=== PATIENT | female | born 1980 ===

== ENCOUNTER 2024-08-17 09:48 | Outpatient (CLI) | payer OTHER, SELFPAY | END 2024-08-17 09:49 | disposition home or self-care (01) | PROVIDERS: Visit Provider Physician Assistant | DX: R00.1 Bradycardia, unspecified (principal) | CPT/HCPCS: 85379 ==

== ENCOUNTER 2024-08-17 11:17 | Emergency (ER) | payer OTHER, SELFPAY ==
--- OUTSIDE RECORDS SUMMARY | 2024-08-17 11:19 | XMS_ITS | Clinical Summary ---
Author Organization [facility] Address [address] [place] [address] Care Team Providers Care Technical Staff Assistant Name Role Phone Doctor, None MD Unavailable Unavailable Skyla Camara MD Primary Care Provider [phone] [facility] Unavailable Allergies Active Allergy Reactions Criticality Noted Date Comments No Clinical Screening - See Comments 01/10/2001 PN: LW CM1: CONTRAST- nka Reaction : Medications fish oil-omega-3 fatty acids 1000 MG capsule Take 2 g by mouth daily Active mineral oil-hydrophilic petrolatum (AQUAPHOR) external ointmentIndicat ions:Flexural eczema Apply topically as needed for dry skin 50 g 2 4 Active triamcinolone (KENALOG) 0.1 % external ointmentIndicat ions:Flexural eczema Apply topically 2 times daily 30 g 1 4 Active Active Problems Problem Noted Date Diagnosed Date Rubella non-immune status, antepartum 10/02/2019 care 09/29/2019 Nummular eczema 08/14/2012 Immunizations Name Administration Dates Next Due HIB (PRP-T) 07/11/1985 Historical DTP/aP 02/13/1987,10/27/1982,10/14/18 82,1981,1981 MMR (MMRII) 09/08/1982 OPV, unspecified 02/13/1987,10/27/1982, 2,1981 TDAP Vaccine (Adacel) 02/14/2008 Family History Medical History Relation Comments No Known Problems Brother No Known Problems Daughter 1 No Known Problems Daughter 2 Pacemaker Father Cancer Maternal Grandfather tongue Diabetes Type 2 Maternal Grandfather Unknown/Adopted Maternal Grandmother No Known Problems Mother Diabetes Type 2 Paternal Grandfather No Known Problems Paternal Grandmother No Known Problems Sister Relation Status Comments Brother Alive Daughter 1 Alive Daughter 2 Alive Father Alive Maternal Grandfather Maternal Grandmother Mother Alive Paternal Grandfather Paternal Grandmother Alive Sister Alive Social History Tobacco Use Types Packs/Day Years Used Date Smoking Tobacco: Never Smokeless Tobacco: Never Tobacco Cessation:Counseling Given: Not Answered Alcohol Use Standard Drinks/Week Comments Not Currently 0 (1 standard drink = 0.6 oz pur e alcohol) Social Connection and Isolat ion Panel [NHANES] Answer Date Recorded Frequency of Communication w ith Friends and Family Not on file 08/31/2023 How often do you get togethe r with friends or relatives? More than three times a week 08/31/2023 Attends Protestant Services Not on file 08/30 Active Member of Clubs or Organizations Not on f ile 08/31/2023 Attends Club or Organization Meetings Not on gucci e 08/31/2023 Marital Status Not on file 08/31/2023 PHQ-2 Answer Date Recorded PHQ-2 Score 0 08/31/2023 [facility] - Occupational Stress Questionnaire Answer Date Recorded Do you feel stress - tense, restless, nervous, or anxious, or unable to sleep at night because your mind is troubled all the time - these days? Not at all 08/31/2023 Exercise Vital Sign Answer Date Recorde d On average, how many days pe r week do you engage in moderate to strenuous exercise (like a brisk walk)? 4 days Minutes of Exercise per Session Not on file 08/31/2023 Clif[place] Depression Scale Answer Date Recorded [place]if[place] Depression Score 4 10/07/2019 Last EPDS Self Harm Result Not on file 10/06 Adolescent Education Answer Date Record ed Getting School Help Needed Not on file 03/22 Food Insecurity Answer Date Recorded Within the past 12 months, d id you worry that your food would run out before you got money to buy more? No 08/31/2023 Within the past 12 months, d id the food you bought just not last and you didn t have money to get more? No 08/31/2023 Housing Stability Answer Date Recorded Do you have housing? (Housin g is defined as stable permanent housing and does not include staying ouside in a car, in a tent, in an abandoned building, in an overnight half-way, or couch-surfing.) Yes 08/31/2023 Are you worried about losing your housing? No 08/31/2023 Financial Resource Strain Answer Date R ecorded Within the past 12 months, h ave you or your family members you live with been unable to get utilities (heat, electricity) when it was really needed? No 08/31/2023 Transportation Needs Answer Date Record ed Within the past 12 months, h as lack of transportation kept you from medical appointments, getting your medicines, non-medical meetings or appointments, work, or from getting things that you need? No 08/31/2023 Interpersonal Safety Answer Date Record ed Do you feel physically and e motionally safe where you currently live? Yes 08/31/2023 Within the past 12 months, h ave you been hit, slapped, kicked or otherwise physically hurt by someone? No 08/31/2023 Within the past 12 months, h ave you been humiliated or emotionally abused in other ways by your partner or ex-partner? No 08/31/2023 Comments No Sex and Gender Information Value Date Recorded Sex Assigned at Not on file Legal Sex Female 4:28 AM PT ESCORT Gender Identity Not on file Sexual Orientation Not on file Last Filed Vital Signs Vital Sign Reading Time Taken Comments Blood Pressure 106/78 08/31/2023 2:56 PM CDT Pulse 52 08/31/2023 2:56 PM CDT Temperature 36.9 C (98.4 F) 08/31/2023 2:56 PM CDT Respiratory Rate 16 08/31/2023 2:56 PM CDT Oxygen Saturation 99% 08/31/2023 2:56 PM CDT Inhaled Oxygen Concentration - - Weight 56.8 kg (125 lb 3.2 oz) 08/31/2023 2:56 P M CDT Height 170.2 cm (5' 7) 08/31/2023 2:56 PM CDT Body Mass Index 19.61 08/31/2023 2:56 PM CDT Plan of Treatment Health Maintenance Due Date Last Done Comments ANNUAL REVIEW OF HM ORDERS 1981 HEPATITIS C SCREENING 1999 HEPATITIS B IMMUNIZATION (1 of 3 - 19+ 3-dose series) 2000 DTAP/TDAP/TD IMMUNIZATION (7 - Td or Tdap) 02/13/2018 02/14/2008, 02/13/1987, 10/27/1982, Additional history exists COVID-19 Vaccine ( season) 2024 INFLUENZA VACCINE (#1) 2024 HPV TEST 03/19/2024 03/19/2019 PAP 03/19/2024 03/19/2019, 03/06, 07/01/2011 PHQ-2 (once per calendar year) 2024 08/31/2023, 12/27/2022 YEARLY PREVENTIVE VISIT 08/30/2024 08/31/19, 02/03/2010, 02/17/2009, Additional history exists MAMMO SCREENING 09/13/2025 09/14/2023 GLUCOSE 08/30/2026 08/31/2023 ADVANCE CARE PLANNING 08/30/2028 08/31/2023 LIPID 08/30/2028 08/31/2023 ZOSTER IMMUNIZATION (1 of 2) 2031 HIV SCREENING Completed 07/01/2011 HPV IMMUNIZATION Aged Out No longer e ligible based on patient's age to complete this topic MENINGITIS IMMUNIZATION Aged Out No l onger eligible based on patient's age to complete this topic Pneumococcal Vaccine: Pediatrics (0 to 5 Years) and At-Risk Patients (6 to 49 Years) Aged Out No longer eligible based on patient's age to complete this topic Procedures Procedure Name Priority Date/Time Associated Diagnosis Comments MA SCREENING DIGITAL BILATERAL Routine 09/14/2023 3:31 PM CDT Visit for screening mammogram COMPREHENSIVE METABOLIC PANEL Routine 08/31/2023 3:53 PM CDT Routine general medical examination at a health care facility LIPID REFLEX TO DIRECT LDL PANEL Routine 08/31/2023 3:53 PM CDT Routine general medical examination at a health care facility ABSTRACT PAP (HIM EXTERNAL RESULT) Routine 03/19/2019 ABSTRACT HPV (HIM EXTERNAL RESULT) Routine 03/19/2019 from Last 3 Months or Most Recently Relevant to Health Maintenance Results * MA SCREENING DIGITAL BILAT - Future (s+30) (09/14/2023 3:31 PM CDT) Anatomical Region Laterality Modality Breast Bilateral Mammography Impressions 09/15/2023 8:35 AM CDT IMPRESSION: ACR BI-RADS Category 1: Negative BREAST CANCER SCREENING RECOMMENDATION: Routine yearly mammography beginning at age 40 or as discussed with your provider. The results and recommendations of this examination will be communicated to the patient. Tyler Marino MD Narrative 09/15/2023 8:35 AM CDT BILATERAL FULL FIELD DIGITAL SCREENING MAMMOGRAM Performed on: 09/14/23 No comparisons were made when reading this study. Technique: This study was evaluated with the assistance of Computer-Aided Detection. Findings: The breasts are heterogeneously dense, which may obscure small masses. There is no radiographic evidence of malignancy. Skyla Camara MD IMG MAMMOGRAPHY ORDERABLES Bertha l Result * Lipid panel reflex to direct LDL Non-fasting (08/31/2023 3:53 PM CDT) Cholesterol 146 <200 mg/dL 09/01/2023 3:37 AM CDT [facility] Triglycerides 67 <150 mg/dL 09/01/2023 3:37 AM CDT [facility] Direct Measure HDL 68 >=50 mg/dL 2023 3:37 AM CDT [facility] LDL Cholesterol Calculated 65 <=100 mg/dL 09/01/2023 3:37 AM CDT [facility] Non HDL Cholesterol 78 <130 mg/dL 09/01/2023 3:37 AM CDT [facility] Patient Fasting > 8hrs? No 09/01/2023 3:37 AM CDT [facility] Blood BLOOD SPECIMEN / Unknown Venipuncture / Unknown 08/31/2023 3:53 PM CDT 08/31/2023 3:54 PM CDT Narrative [facility] - 09/01/2023 3:37 AM CDT Cholesterol Desirable: <200 mg/dL Triglycerides Normal: Less than 150 mg/dL Borderline High: 150-199 mg/dL High: 200-499 mg/dL Very High: Greater than or equal to 500 mg/dL Direct Measure HDL Female: Greater than or equal to 50 mg/dL Male: Greater than or equal to 40 mg/dL LDL Cholesterol Desirable: <100mg/dL Above Desirable: 100-129 mg/dL Borderline High: 130-159 mg/dL High: 160-189 mg/dL Very High: >= 190 mg/dL Non HDL Cholesterol Desirable: 130 mg/dL Above Desirable: 130-159 mg/dL Borderline High: 160-189 mg/dL High: 190-219 mg/dL Very High: Greater than or equal to 220 mg/dL us Skyla Camara MD LAB - BLOOD ORDERABLES Final Re sult [facility] [place] [facility] [address] [facility], [address] [id number] * (ABNORMAL) Comprehensive metabolic panel (BMP + Alb, Alk Phos, ALT, AST, Total. Bili, TP) (08/31/2023 3:53 PM CDT) Sodium 137 135 - 145 mmol/L 09/01/2023 3:37 AM CDT [facility] Comment:Reference intervals for this test were updated on 03/01/2023 to more accurately reflect our healthy population. There may be differences in the flagging of prior results with similar values performed with this method. Interpretation of those prior results can be made in the context of the updated reference intervals. Potassium 4.0 3.4 - 5.3 mmol/L 09/01/2023 3:37 AM CDT [facility] Carbon Dioxide (CO2) 24 22 - 29 mmol/L 09/01/2023 3:37 AM CDT [facility] Anion Gap 11 7 - 15 mmol/L 09/01/2023 3:37 AM CDT [facility] Urea Nitrogen 14.3 6.0 - 20.0 mg/dL 09/01/2023 3:37 AM CDT [facility] Creatinine 0.76 0.51 - 0.95 mg/dL 09/01/2023 3:37 AM CDT [facility] GFR Estimate >90 >60 mL/min/1. 73m2 09/01/2023 3:37 AM CDT [facility] Calcium 9.5 8.6 - 10.0 mg/dL 09/01/2023 3:37 AM CDT [facility] Chloride 102 98 - 107 mmol/L 09/01/2023 3:37 AM CDT [facility] Glucose 142(H) 70 - 99 mg/dL 09/01/2023 3:37 AM CDT [facility] Alkaline Phosphatase 39(L) 40 - 150 U/L 09/01/2023 3:37 AM CDT [facility] Comment:Reference intervals for this test were updated on 04/19/2023 to more accurately reflect our healthy population. There may be differences in the flagging of prior results with similar values performed with this method. Interpretation of those prior results can be made in the context of the updated reference intervals. AST 16 0 - 45 U/L 09/01/2023 3:37 AM CDT [facility] Comment:Reference intervals for this test were updated on 11/15/2022 to more accurately reflect our healthy population. There may be differences in the flagging of prior results with similar values performed with this method. Interpretation of those prior results can be made in the context of the updated reference intervals. ALT 12 0 - 50 U/L 09/01/2023 3:37 AM CDT [facility] Comment:Reference intervals for this test were updated on 11/15/2022 to more accurately reflect our healthy population. There may be differences in the flagging of prior results with similar values performed with this method. Interpretation of those prior results can be made in the context of the updated reference intervals. Protein Total 7.0 6.4 - 8.3 g/dL 09/01/2023 3:37 AM CDT [facility] Albumin 4.7 3.5 - 5.2 g/dL 09/01/2023 3:37 AM CDT [facility] Bilirubin Total 0.4 <=1.2 mg/dL 09/01/2023 3:37 AM CDT [facility] Blood BLOOD SPECIMEN / Unknown Venipuncture / Unknown 08/31/2023 3:53 PM CDT 08/31/2023 3:54 PM CDT us Skyla C Camara MD LAB - BLOOD ORDERABLES Final Re sult LABORATORY [facility] [place] [facility] [address] [facility], [address] [place] [address], [facility] * ABSTRACT HPV-NO CHARGE (03/19/2019) HPV Abstract See Scanned Document [facility] 03/19/2019 [facility] - 03/19/2019 LAB RESULT [facility] us Provider Outside LAB - HIM EXTERNAL RESULT Final Result [address] [address], [facility] [phone] * ABSTRACT PAP-NO CHARGE (03/19/2019) PAP-ABSTRACT See Scanned Document [facility] 03/19/2019 [facility] - 03/19/2019 LAB RESULT [facility] us Provider Outside LAB - HIM EXTERNAL RESULT Final Result [address] [address], [facility] [phone] from Last 3 Months or Most Recently Relevant to Health Maintenance [place] [address] [address] [place] [address] [facility] Care Teams Technical Staff Assistant Relationship Specialty Start Date End Date Skyla Camara MD [address] [place] [address] PCP - General Internal Medicine 09/14/23 DoctorEctor MD 11/25/10 Clinic - [facility] [address] [place] [address] Assigned PCP 09/27/23
--- OUTSIDE RECORDS SUMMARY | 2024-08-17 11:19 | XMS_ITS | Clinical Summary ---
Author Organization [facility] Address [address] [place] [address] Care Team Providers Care Lead Military Analyst Name Role Phone No Primary/Referring, Phy Primary Care Provider Unavailable Source Comments You are receiving this document as you are listed as the primary care provider,follow-up provider, or the patient has been referred to you for consultation.This is in compliance with the Medicare and[facility] EHR Incentive [facility],which states Providers who transition their patient to another setting of careor provider of care or refers their patient to another provider of care shouldprovide summary care record for each transition of care or referral. [facility] Allergies No known active allergies Medications vitamin-ferrous fumarate-folic acid (PRENATALPLUS) 27-1 MG tablet Take 1 Tablet by mouth daily. Active ferrous sulfate 325 (65 Fe) MG tablet Take 325 mg by mouth daily with breakfast. Active omega-3 fatty acids (FISH OIL) 1000 MG capsule Take 1 g by mouth daily. Active Active Problems Problem Noted Date Diagnosed Date Abnormal maternal glucose tolerance, antepartum 08/06/2019 Overview (08/06/2019): 08/06/2019: 147 on one hour GCT. Declining 3 hour GTT and/or QID checks. Supervision of other normal 06/27/2019 Not immune to hepatitis B virus 03/19/2019 AMA (advanced maternal age) multigravida 35+ 02/2019 Family History Medical History Relation Name Comments Cancer, Breast Negative Family History Cancer, Colon Negative Family History Cancer, Ovary Negative Family History Relation Name Status Comments Father Alive Mother Alive Brother Alive Daughter 1 Alive Daughter 2 Alive Maternal Grandfather Maternal Grandmother Paternal Grandfather Paternal Grandmother Alive Sister Alive Social History Tobacco Use Types Packs/Day Years Used Date Smoking Tobacco: Never Smokeless Tobacco: Never Alcohol Use Standard Drinks/Week Comments No 0 (1 standard drink = 0.6 oz pur e alcohol) PHQ-2 Answer Date Recorded PHQ-2 Score 0 03/19/2019 Comments No Sex and Gender Information Value Date Recorded Sex Assigned at Not on file Legal Sex Female 9:59 AM [place] Gender Identity Not on file Sexual Orientation Not on file Occupation Industry Job Start Date Job End Date accounting Not on file Not on file Not on file Last Filed Vital Signs Vital Sign Reading Time Taken Comments Blood Pressure 135/74 09/17/2019 5:05 PM CDT Pulse 57 09/17/2019 5:05 PM CDT Temperature 36.7 C (98 F) 06/19/2015 10:51 AM GRE[place]T Respiratory Rate - - Oxygen Saturation - - Inhaled Oxygen Concentration - - Weight 74.3 kg (163 lb 12.8 oz) 09/17/2019 4:37 PM CDT Height 167.6 cm (5' 6) 08/02/2019 3:38 PM [place] Body Mass Index 26.44 08/02/2019 3:38 PM [place] Plan of Treatment Health Maintenance Due Date Last Done Comments Hep C Screening (Preventive Services) 1981 Mammogram 1981 Adult Preventive Visit 1999 DTaP/Tdap/Td (1 - Tdap) 2000 HepB (1) 2000 COVID-19 Vaccine (1 - 2023-2 5 season) 2024 Influenza (#1) 2024 Cervical Cancer Screening 03/19/2024 03/19/2019 Zoster/Shingles (1 of 2) 2031 HIV Screening (Preventive Services) Completed 03/19/2019 HPV Vaccine Aged Out No longer eligi ble based on patient's age to complete this topic HepA Aged Out No longer eligi ble based on patient's age to complete this topic Hib Aged Out No longer eligi ble based on patient's age to complete this topic IPV (Polio) Aged Out No longer eligi ble based on patient's age to complete this topic MCV4 Aged Out No longer eligi ble based on patient's age to complete this topic Meningococcal B Aged Out No longer el igible based on patient's age to complete this topic Pneumococcal Aged Out No longer eligi ble based on patient's age to complete this topic Procedures Procedure Name Priority Date/Time Associated Diagnosis Comments CYTOLOGY (PAP) Routine 03/19/2019 10:10 AM CDT Multigravida of advanced maternal age in first trimester HIV 1/2 AG/AB 4TH GEN Routine 03/19/2019 9:50 AM CDT Multigravida of advanced maternal age in first trimester from Last 3 Months or Most Recently Relevant to Health Maintenance Results * PAP Test (03/19/2019 10:10 AM CDT) Case Report Pap Case: [id number] Authorizing Provider: Lisa Bravo APRN, Collected: 03/19/2019 10:10 AM FORMS ANALYST Ordering Location: [facility] Received: 03/19/2019 11:04 AM Obstetrics and Gynecology First Screen: Janett Maciel Specimen: Pap Test, Routine, Cervix/Endocervix 03/30/2019 9:47 AM [facility] Pap Specimen Adequacy Satisfactory for evaluation, endocervical/villa sformation zone component present. 03/30/2019 9:47 AM [facility] Pap Interpretation Negative for intraepithelial lesion or malignancy (NILM). 03/30/2019 9:47 AM [facility] at 0947 CDT Gross Description The specimen is received in SurePath fixative and properly labeled. 1 Pap-stained SurePath slide is prepared. 03/30/2019 9:47 AM [facility] Pap Disclaimer The Pap test is a screening test designed to aid in the detection of cervical cancer and its precursor lesions. It is not a diagnostic procedure and should not be used as the sole means of detecting cervical cancer. Both false-positive and false-negative reports may occur. 03/30/2019 9:47 AM [facility] Embedded Images 9:47 AM [facility] Other Specimen Type ENTIRE ENDOCERVIX / Unknown 03/19/2019 10:10 AM CDT 03/19/2019 11:04 AM CDT Comment:LMP: Patient's last menstrual period was 01/04/2019 (approximate). us Lisa Bravo APRN, CNP LAB PATHOLOGY Fin al Result [address] [address], [facility] [phone] * HIV 1/2 AG/AB 4TH GEN (03/19/2019 9:50 AM CDT) HIV 1/2 Antigen/Anti body (4th generation) Negative (Non Reactive) Negative (Non Reactive) 03/19/2019 3:[address] [facility] Comment:HIV-1 p24 Antigen an d HIV-1/HIV-2 Antibody not detected Blood Venipuncture / Unknown 03/19/2019 9:50 AM CDT 03/19/2019 9:51 AM CDT Lisa Bravo APRN, CNP LAB_1 Fin al Result Performing Organization Address City/State/[facility] Co de Phone Number [facility] [address] [place] [address], [facility] [phone] from Last 3 Months or Most Recently Relevant to Health Maintenance Insurance [facility] [id number] [place] [address] Care Teams Lead Military Analyst Relationship Specialty Start Date End Date No Primary/Referring, Phy PCP - General 06/19/15
--- OUTSIDE RECORDS SUMMARY | 2024-08-17 11:19 | XMS_ITS | Encounter Summary ---
Author Organization [facility] Address [address] [place] [address] Care Team Providers Care Lean Six Sigma Senior Specialist Name Role Phone No Primary/Referring, Phy Primary Care Provider Unavailable Encounter Details Date Type Department Care Team (Late st Contact Info) Description 06/28/2019 Correspondence [facility] Obstetrics [facility]ne[facility] [address] [place] [address] Adriana Hutson APRN, CN [address] [place] [address] FMLA Social History Tobacco Use Types Packs/Day Years Used Date Smoking Tobacco: Never Smokeless Tobacco: Never Alcohol Use Standard Drinks/Week Comments No 0 (1 standard drink = 0.6 oz pur e alcohol) PHQ-2 Answer Date Recorded PHQ-2 Score 0 03/19/2019 Comments Yes Sex and Gender Information Value Date Recorded Sex Assigned at Not on file Legal Sex Female 9:59 AM ACTIONSCRIPT DEVELOPER Gender Identity Not on file Sexual Orientation Not on file Occupation Industry Job Start Date Job End Date accounting Not on file Not on file Not on file documented as of this encounter Plan of Treatment Not on file documented as of this encounter Visit Diagnoses Not on filedocumented in this encounter Care Teams Lean Six Sigma Senior Specialist Relationship Specialty Start Date End Date No Primary/Referring, Phy PCP - General 06/19/15 documented as of this encounter
[2024-08-17 11:31] VITALS: BP 144/85; PULSE 55; RESP 18; TEMP 36.6; O2SAT 100; BMI 20.4
--- NOTE | 2024-08-17 11:49 | CRLHL7_ITS ---
For Patients: As a result of the Century Cures Act, medical imaging exams and procedure reports are released immediately into your electronic medical record. You may view this report before your referring provider. If you have questions, please contact your health care provider. INDICATION: Left lower extremity swelling. TECHNIQUE: Laterality lower extremity Doppler venous ultrasound examination was performed. Grayscale and color Doppler images were obtained. COMPARISON: None. FINDINGS: RIGHT LOWER EXTREMITY: Common femoral vein: Fully compressible. No deep vein thrombus. Normal flow and response to augmentation on color Doppler imaging. LEFT LOWER EXTREMITY: Common femoral vein: Fully compressible. No deep vein thrombus. Normal flow and response to augmentation on color Doppler imaging. Superficial femoral vein: Fully compressible. No deep vein thrombus. Normal flow on color Doppler imaging. Deep femoral vein: No deep vein thrombus Popliteal vein: Fully compressible. No deep vein thrombus. Normal flow on color Doppler imaging. Lower calf: The visualized posterior tibial and peroneal veins are fully compressible. No deep vein thrombus. Normal flow and response to augmentation on color Doppler imaging. Superficial veins: The superficial veins, including the greater saphenous vein, remain patent and are fully compressible. Soft tissues: No popliteal fossa fluid collection identified. IMPRESSION: No deep vein thrombus within the left lower extremity. Dictated by Sriram Morgan MD @ 08/17/2024 12:35:08 PM (Electronically Signed)
--- NOTE | 2024-08-17 11:50 | ED_ITS ---
HPI - General Adult General Chief complaint: Extremity Pain/Injury, Lower Stated complaint: Needs Imaging Time Seen by Provider: 08/17/24 11:26 History of Present Illness HPI narrative: This 44-year-old female went to urgent care because of pain in her left calf. She had labs done there and her electrolytes appeared normal but her D-dimer was slightly elevated at around 0.7. She is sent here for the process of ruling out a blood clot. The patient does not have constant pain in her calf. It seems to occur more with certain activities and sometimes she has spasms when awakening in the morning. She is active and does not report any injury event. She does not have any risk factors or history of thrombosis. Related Data Home Medications ?Medication ?Instructions ?Recorded ?Confirmed No Known Home Medications 08/17/24 08/17/24 Allergies Allergy/AdvReac Type Severity Reaction Status Date / Time No Known Drug Allergies Allergy Verified 08/17/24 11:31 Review of Systems Status of ROS: Reports: 10 or more systems reviewed and unremarkable except as noted in History and below Narrative: Constitutional: No fevers, no weight gain or loss. Eyes: No discharge. No vision changes. HENT: No congestion, no sore throat, no ear pain. Cardiovascular: No chest pain, no palpitations. Respiratory: No shortness of breath, no wheezes, no cough. Gastrointestinal: No abdominal pain, no vomiting, no diarrhea. Genitourinary: No dysuria, no hematuria. Musculoskeletal: Normal range of motion. Left calf pain as described above. Skin: No rashes, no pruritis. Neurological: No dizziness, weakness, sensory change, speech change. Endo/Heme/Allergies: No bruising or bleeding. No polydipsia. Pysch: no suicidality, no anxiety, no insomnia. All other systems reviewed and are negative. [facility] Social History Smoking Status: Never smoker How often do you have a drink containing alcohol: never AUDIT-C Alcohol total score: 0 Non-prescribed substance use: denies use Exam Narrative: Exam Narrative: Constitutional: Well-developed, well-nourished, no acute distress. HEENT: Normocephalic, atraumatic. Neck: Normal range of motion. Nontender. Supple. Heart: Regular. No murmurs. Normal rate. Intact distal pulses. Lungs: Clear to auscultation. No chest discomfort. No wheezes, rhonchi, or rales. Abdomen: Normal bowel sounds. Nontender. No rebound tenderness. Genitalia: Deferred. Back: No midline tenderness. Normal range of motion. Extremities: Normal range of motion. No injury. No swelling or deformity. Skin: Intact. No rash. Warm. No erythema or pallor. Neurologic: No altered sensation. No weakness. Alert and oriented. Psychiatric: No suicidality. No anxiety or depression. No insomnia. Nursing notes and vitals signs are reviewed. Const: Vital Signs, click to edit/add: Vital Signs - 24 hr 08/17/24 11:31 Temperature 97.8 F Pulse Rate [Pulse Oximeter] 55 L Respiratory Rate 18 Blood Pressure [Le ft Upper Arm] 144/85 H Pulse Oximetry 100 Oxygen Delivery Me thod Room Air Course Vital Signs Vital signs: Initial Vital Signs Temperature 97.8 F 08/17/24 11:31 Temperature Source Temporal Artery Scan 08/17/24 11:31 Pulse Rate 55 L 08/17/24 11:31 Pulse Rhythm Regular 08/17/24 11:31 Respiratory Rate 18 08/17/24 11:31 Blood Pressure 144/85 H 08/17/24 11:31 Blood Pressure Mean 104 08/17/24 11:31 Blood Pressure Position Sitting 08/17/24 11:31 Pulse Oximetry 100 08/17/24 11:31 Oxygen Delivery Method Room Air 08/17/24 11:31 Vital Signs Temperature 97.8 F 08/17/24 11:31 Pulse Rate 55 L 08/17/24 11:31 Respiratory Rate 18 08/17/24 11:31 Blood Pressure 144/85 H 08/17/24 11:31 Pulse Oximetry 100 08/17/24 11:31 Oxygen Delivery Method Room Air 08/17/24 11:31 Temperature 97.8 F 08/17/24 11:31 Pulse Rate 55 L 08/17/24 11:31 Respiratory Rate 18 08/17/24 11:31 Blood Pressure 144/85 H 08/17/24 11:31 Pulse Oximetry 100 08/17/24 11:31 Oxygen Delivery Method Room Air 08/17/24 11:31 Medical Decision Making MDM Narrative Medical decision making narrative: This patient is sent here to rule out a blood clot in her left lower leg. She does not have any risk factors for thrombosis except that she did have a trip from the [facility] in the somewhat recent past. Her pain is not constant and seems to be reproduced with certain exertional movements. Her D-dimer was slightly elevated so she came here for ultrasound assessment. There is no evidence of deep venous thrombosis or other abnormality on ultrasound imaging. This was reassuring to the patient. It seems that her symptoms are likely related to her musculature. Discharge Plan Discharge Clinical Impression: Acute myofascial strain Patient Disposition: Home, Self-Care Condition: Stable Additional Instructions: Activity as tolerated. Use [id number] medicines as needed and directed. Follow up with MD return if worsening. Prescriptions: No Action No Known Home Medications Follow Up/Referrals: Provider,Not a Local [Primary Care Provider] - Stand Alone Forms: [facility] Info Instructions
== END 2024-08-17 13:00 | disposition home or self-care (01) ==
LOC: ED 12:39
PROVIDERS: Emergency Provider Emergency Medicine Emergency Medical Services
DX: S86.112A Strain of other muscle(s) and tendon(s) of posterior muscle group at lower leg level, left leg, initial encounter (principal)
CPT/HCPCS: 93971; 99283; 99284